=== PATIENT | male | born 1990 | race Hispanic/Latino ===

== ENCOUNTER 2019-06-22 16:18 | Emergency (ER) | payer OTHER ==
[~2019-06-22] VITALS: Ht 170.2 cm; Wt 81.8 kg
[2019-06-22 16:19] VITALS: BP 131/62
--- NOTE | 2019-06-22 16:52 | REP ---
Right ankle series: Four views. History: Injury in a fall. Findings: Four views right ankle demonstrate an intact ankle mortise. No fracture or subluxation is seen. Bones, joints and soft tissues are unremarkable. Impression: Negative radiographs of the right ankle. Electronically Signed by Stefan Polk MD 06/22/2019 04:44 P
== END 2019-06-22 17:15 | disposition home or self-care (01) ==
LOC: M ED 16:18
DX: S93.401A Sprain of unspecified ligament of right ankle, initial encounter (principal); X50.9XXA Other and unspecified overexertion or strenuous movements or postures, initial encounter; Y92.59 Other trade areas as the place of occurrence of the external cause; Y93.89 Activity, other specified; Y99.0 Civilian activity done for income or pay

== ENCOUNTER 2020-02-29 16:08 | Emergency (ER) | payer OTHER ==
[~2020-02-29] VITALS: Ht 170.2 cm; Wt 90.0 kg
[2020-02-29 19:33] VITALS: BP 126/68
--- NOTE | 2020-03-01 08:23 | REP ---
Clinical: Pain and swelling Technique: AP, lateral, bilateral oblique views right hand . Findings: The osseous structures and joint spaces are intact and normal. There is no evidence for acute fracture or dislocation. Surrounding soft tissues are unremarkable. No subcutaneous emphysema or radiodense foreign body. Impression: No acute fracture or dislocation. Electronically Signed by Fransisco Lazaro MD 03/01/2020 08:15 A
== END 2020-02-29 19:34 | disposition home or self-care (01) ==
LOC: M ED 16:08
DX: M79.641 Pain in right hand (principal)